=== PATIENT | female | born 1950 | race Caucasian/White ===

== ENCOUNTER 2016-08-02 06:11 | Day surgery (SDC) | payer MEDICARE ==
[2016-07-24 10:41] LABS: BASOPHILS 0.7 %; BASOPHILS ABSOLUTE 0.06 10/3/uL (0.0-0.16); EOSINOPHILS 2.2 %; HEMATOCRIT 45.4 % (36.0-48.0); HEMOGLOBIN 15.6 g/dL (12.0-16.0); IMMATURE GRANULOCYTES 0.3 %; IMMATURE GRANULOCYTES ABSOLUTE 0.03 10/3/uL (0.0-0.11); LYMPHOCYTES 21.3 %; LYMPHOCYTES ABSOLUTE 1.92 10/3/uL (0.67-4.30); MEAN CORPUS HGB CONC 34.4 g/dL (32.0-36.0); MEAN CORPUSCULAR HEMOGLOB 31.6 pg (26.0-34.0); MEAN CORPUSCULAR VOLUME 92.1 fL (80-100); MEAN PLATELET VOLUME 10.6 fL (9.2-13.0); MONOCYTES 9.1 %; MONOCYTES ABSOLUTE 0.82 10/3/uL (0.21-1.20); NEUTROPHILS 66.4 %; NEUTROPHILS ABSOLUTE 5.97 10/3/uL (2.02-8.40); PLATELET COUNT 267 10/3/uL (150-400); RBC DISTRIBUTION WIDTH 12.7 % (12.0-16.0); RED CELL COUNT 4.93 10/6/uL (4.0-5.6)
[2016-07-24 10:42] LABS: MANUAL DIFF NO %
[2016-07-24 10:53] LABS: BUN (BLOOD UREA NITROGEN) 17 MG/DL (6-23); CALCIUM, SERUM 9.2 MG/DL (8.5-10.4); CHLORIDE, SERUM 103 MMOL/L (96-112); CO2 (CARBON DIOXIDE) 32 MMOL/L (24-34); CREATININE 0.93 MG/DL (0.55-1.02); GFR AFRICAN AMERICAN 75 ML/MIN (>=60); GFR NON AFRICAN AMERICAN 64 ML/MIN (>=60); GLUCOSE, SERUM 103 MG/DL (60-99); POTASSIUM, SERUM 3.4 MMOL/L (3.5-5.3); SODIUM, SERUM 141 MMOL/L (135-148)
--- NOTE | ~2016-08-02 | OP ---
Record Of Operation [facility] [address] [place]. [address] NAME: SINDY LAWRENCE : 52 STATUS : REG [facility] [place] PAT#: [id number] AGE: 66 ADM/REG DATE : 08/02/16 MR#: [id number] REPORT SERV DATE: 08/02/16 DICTATED BY: TAE EDWARDS DATE: 08/02/16 REPORT STATUS : Draft TRANSCRIBED BY: ZARA DATE: 08/02/16 DATE OF PROCEDURE: 08/02/2016 SERVICE: Otolaryngology. PREOPERATIVE DIAGNOSES: 1. Acquired nasal deformity. 2. Deviated nasal septum. 3. Inferior turbinate hypertrophy. POSTOPERATIVE DIAGNOSES: 1. Acquired nasal deformity. 2. Deviated nasal septum. 3. Inferior turbinate hypertrophy. PROCEDURES: 1. Repair of nasal vestibular stenosis. 2. Septoplasty. 3. Bilateral inferior turbinate reduction and outfracture. 4. Sunray of septal cartilage for use as a graft in the nose. ANESTHESIA: General endotracheal anesthesia. ESTIMATED BLOOD LOSS: 200 mL. COMPLICATIONS: None. SPECIMENS: Nasal bone and cartilage. FINDINGS: Patient had a deviated nasal septum to the left and internal valve stenosis and bilateral turbinate hypertrophy. STATEMENT OF MEDICAL NECESSITY: This is a 66-year-old female with history of chronic nasal airway obstruction, snoring, and mouth breathing. She was not an allergic patient. Her exam was consistent with the above findings and I recommended the above surgery for management. STATEMENT OF OPERATION: The patient was brought to the operating room in supine position, transferred over to the operating room table. All pressure points were padded. General endotracheal anesthesia was established. The patient's nose was prepared with cocaine soaked pledgets and 1% lidocaine with epinephrine, which was injected in the skin and soft tissue envelope of the nose. The patient was then prepped and draped in the usual fashion. The pledgets were removed. A transcolumellar incision was marked out with a surgical marking pen in an inverted V fashion. Bilateral marginal incisions were made followed by a transcolumellar incision. The columellar flap was elevated in the submuscular plane connected with the marginal incisions in the skin and soft tissue envelope. The nose was Record Of Operation [facility] [address] [place]. [address] NAME: SINDY LAWRENCE : 52 STATUS : REG [facility] [place] PAT#: [id number] AGE: 66 ADM/REG DATE : 08/02/16 MR#: [id number] REPORT SERV DATE: 08/02/16 DICTATED BY: TAE EDWARDS DATE: 08/02/16 REPORT STATUS : Draft TRANSCRIBED BY: ZARA DATE: 08/02/16 elevated to completely expose the upper and lower lateral cartilages. The anterior septal angle was developed with a 15 blade. Bilateral septal flaps were created in the subperichondrial and subperiosteal plane. The upper lateral cartilages were divided sharply from the dorsal septal cartilage with a #15 blade. The bony cartilaginous junction was then with a Jaime elevator. A cut was made superiorly in the midline bony nasal septum with double-action scissors, and the deviated portion of bony septum was gently removed with a Morton elevator and a Trevor forceps. Next, leaving a 1.5 cm dorsal and caudal strut, quadrangular cartilage was harvested, taken to the back table, two muffle operator grafts were carved with a 15 blade as well as a columellar strut graft. The muffle operator grafts were then placed between the upper lateral cartilage and the dorsal septal cartilage and secured with three interrupted horizontal mattress sutures using 5-0 PDS. Next, the soft tissue envelope was created between the medial crura of the lower lateral cartilage and a columellar strut graft was placed with the kindergarten teacher assistant holding the nose in the appropriate projection and rotation. A transcolumellar stitch was performed incorporating the medial crura of the lower lateral cartilage and a columellar strut graft. Once this was performed, the nose was redraped and checked for symmetry, which was present. Both inferior turbinates were then injected with 1% lidocaine with epinephrine and reduced intramurally with a [employer] InHiroomed shaver blade. After this was performed, they were both outfractured using a Boies elevator. The transcolumellar incision was then closed with interrupted 6-0 fast absorbing gut sutures followed by the internal nasal incisions were closed with 4-0 chromic gut suture. The Gardner splints slathered in bacitracin were then inserted to each side of the nose and secured to the anterior septum with a 2-0 nylon suture. The outside of the nose was cleansed with warm saline and dried. Mastisol solution was applied to the dorsum of the nose followed by modified Steri-Strips and an Aquaplast splint. Finally, the patient's stomach and oropharynx were suctioned clear of blood and fluid with an orogastric tube. This concluded the case. The patient was turned back over to Anesthesia, where she awoke, was extubated, and transferred to the PACU in stable condition. PS/MODL Tae Edwards MD / [id number] CC: MD Dejon Cotto M.D.
[~2016-08-02 06:11] MED LIST: ASAB PO; HYDROCHLOROT25 MG PO; K-TABS10 MEQ PO; LEVOTHYROXIN25 MCG PO; MULTIPLE VIT PO; NO HOME MEDS; Vitamin B-Twelve IM; ZOCOR20 PO
== END 2016-08-02 13:12 | disposition home or self-care (01) ==
LOC: SDC 06:11
PROVIDERS: Otolaryngology
PROC: 09QM0ZZ Repair Nasal Septum, Open Approach (ICD-10-PCS; 2016-08-02)
PROC: 09RM07Z Replacement of Nasal Septum with Autologous Tissue Substitute, Open Approach (ICD-10-PCS; principal; 2016-08-02 08:00)
DX: M95.0 Acquired deformity of nose (principal); J34.2 Deviated nasal septum; J34.3 Hypertrophy of nasal turbinates; I25.10 Atherosclerotic heart disease of native coronary artery without angina pectoris; E78.5 Hyperlipidemia, unspecified; E78.00 Pure hypercholesterolemia, unspecified; E03.9 Hypothyroidism, unspecified; B19.20 Unspecified viral hepatitis C without hepatic coma; K58.9 Irritable bowel syndrome, unspecified; Z88.2 Allergy status to sulfonamides; Z91.013 Allergy to seafood; Z88.5 Allergy status to narcotic agent; Z88.1 Allergy status to other antibiotic agents; Z91.09 Other allergy status, other than to drugs and biological substances; Z87.891 Personal history of nicotine dependence; Z87.442 Personal history of urinary calculi; Z90.89 Acquired absence of other organs; Z98.51 Tubal ligation status; Z79.82 Long term (current) use of aspirin; Z79.899 Other long term (current) drug therapy; Z98.890 Other specified postprocedural states
CPT/HCPCS: 80048; 85025; 88300; 93005; A9270-GY; J0690; J2250; J2405; J2710; J3010